=== PATIENT | female | born 1980 | race Two or more races ===

== ENCOUNTER 2024-08-03 11:15 | Inpatient (IN) | payer OTHER ==
[~2024-08-03] VITALS: Ht 167.6 cm; Wt 83.5 kg
[2024-08-08] MEDS ORDERED: CLINDAMYCIN PHOSPHATE 150 MG/ML (600mg) ONE ×2 (12:49→19:38)
[2024-08-08] MEDS ORDERED: POVIDONE-IODINE 118 ML BOTT TOP ONE (15:38)
[2024-08-08] MEDS ORDERED: VITAMIN D3250 MCG (15:43)
[2024-08-08] MEDS ORDERED: WIXELA 250-501 EACH (15:44)
[2024-08-08] MEDS ORDERED: CHLORHEXIDINE GLUCONATE 120 ML BOTTLE TOP ONE (17:34)
[2024-08-08] MEDS ORDERED: MORPHINE SULFATE 4 MG/ML VIAL IV PRN (17:45)
[2024-08-08] MEDS ORDERED: CLINDAMYCIN PHOSPHATE 150 MG/ML (600mg) IV SCH (18:00)
[2024-08-08] MEDS ORDERED: RINGERS SOLUTION,LACTATED 1,000 ML IV SCH (18:00)
[2024-08-08] MEDS ORDERED: MORPHINE SULFATE 4 MG,MORPHINE SULFATE 2 MG IV PRN (18:15)
[2024-08-08] MEDS ORDERED: ONDANSETRON HCL 2 MG/ML VIAL ONE (18:33)
[2024-08-08] MEDS ORDERED: ONDANSETRON HCL 2 MG/ML VIAL IV SCH (21:00)
[2024-08-08 22:10] VITALS: BP 142/75
[2024-08-08 22:11] LABS: HEMATOCRIT 36.3 % (36.0-45.00); HEMOGLOBIN 12.5 g/dL (12.0-15.00); MEAN CELL VOLUME 84.4 fL (80.00-100.00); MEAN CORPUSCULAR HGB CONC 34.3 g/dl (32.0-36.0); PLATELET COUNT 400 K/uL (150-450); RED CELL DISTRIBUTION WIDTH 13.5 % (11.5-14.5)
[2024-08-09] VITALS: BP 138/81
[2024-08-09 08:00] VITALS: BP 131/73
[2024-08-09] MEDS ORDERED: ENOXAPARIN SODIUM 40 MG/0.4 ML SYRINGE SUBCUTANEO SCH (09:00)
[2024-08-09] MEDS ORDERED: GABAPENTIN 300 MG CAPSULE PO PRN (10:15)
[2024-08-09] MEDS ORDERED: IBUprofen 800 MG TABLET PO PRN (10:15)
[2024-08-09] MEDS ORDERED: FAMOtidine 20 MG TABLET PO NR (11:00)
[2024-08-09 19:11] VITALS: BP 120/75
[2024-08-10] VITALS: BP 122/74
[2024-08-10] MEDS ORDERED: IBUPROFEN800 MG PO (07:15)
[2024-08-10] MEDS ORDERED: GABAPENTIN300 MG PO (07:15)
[2024-08-10 08:51] VITALS: BP 122/80
[2024-08-10] MEDS ORDERED: FAMOtidine 20 MG TABLET PO SCH (09:00)
== END 2024-08-10 09:06 | disposition home or self-care (01) | DRG 743 ==
LOC: O/R 08-08 07:47 → SURH 08-08 08:45 → OB/GYN 08-08 19:21
PROVIDERS: ADMIT Obstetrics & Gynecology Gynecology; ATTEND Obstetrics & Gynecology Gynecology
PROC: 0UT70ZZ Resection of Bilateral Fallopian Tubes, Open Approach (ICD-10-PCS; 2024-08-08)
PROC: 0USG0ZZ Reposition Vagina, Open Approach (ICD-10-PCS; 2024-08-08)
PROC: 0UT90ZZ Resection of Uterus, Open Approach (ICD-10-PCS; principal; 2024-08-08 08:45)
DX: D25.1 Intramural leiomyoma of uterus (principal); N92.1 Excessive and frequent menstruation with irregular cycle; Z20.822 Contact with and (suspected) exposure to COVID-19

== ENCOUNTER 2024-10-10 11:13 | Emergency (ER) | payer OTHER ==
[~2024-10-10] VITALS: Ht 167.6 cm; Wt 83.9 kg
[~2024-10-10 11:13] MED LIST: GABAPENTIN300 MG PO; IBUPROFEN800 MG PO; VITAMIN D3250 MCG; WIXELA 250-501 EACH
[2024-10-10] MEDS ORDERED: BENZONATATE 100 MG CAPSULE PO ONE (15:15)
[2024-10-10] MEDS ORDERED: PEPCID AC20 MG PO (15:23)
[2024-10-10] MEDS ORDERED: PROAIR RESPICL90 MCG IH (15:23)
[2024-10-10] MEDS ORDERED: LEVOFLOXACIN500 MG PO (15:23)
[2024-10-10] MEDS ORDERED: IPRAT-ALBUT 0.5-3 ML IH (15:23)
[2024-10-10] MEDS ORDERED: SINGULAIR10 MG PO (15:23)
[2024-10-10] MEDS ORDERED: BENZONATATE200 M1 PO (15:23)
[2024-10-10] MEDS ORDERED: NASAL MIST126 ML NASAL (15:23)
== END 2024-10-10 16:14 | disposition home or self-care (01) ==
LOC: ER 11:15
DX: J45.901 Unspecified asthma with (acute) exacerbation (principal); J45.909 Unspecified asthma, uncomplicated; J32.9 Chronic sinusitis, unspecified; Z88.0 Allergy status to penicillin; Z91.040 Latex allergy status